=== PATIENT | male | born 1950 | race Caucasian/White ===

== ENCOUNTER 2018-12-09 14:01 | Emergency (ER) | payer MEDICARE ==
[~2018-12-09] VITALS: Ht 188 cm; Wt 77.1 kg
[~2018-12-09 14:01] MED LIST: CARAFATE 1 GM TA1 G1 PO; NORCO 5-325 TA1 EACH PO; NORCO 7.5-3251 EACH PO; OTC ALLERGY MED; ZANTAC 7575 MG PO
[2018-12-09] MEDS ORDERED: KEFLEX500 M1 PO (14:27)
[2018-12-09] MEDS ORDERED: BACTRIM DS TAB1 EACH PO (14:27)
[2018-12-09 14:34] VITALS: BP 145/85
== END 2018-12-09 14:35 | disposition home or self-care (01) ==
LOC: M.ERS 14:01
DX: L03.114 Cellulitis of left upper limb (principal); Z90.89 Acquired absence of other organs; Z98.52 Vasectomy status